=== PATIENT | male | born 1965 | race African-American/Black ===

== ENCOUNTER 2019-04-07 03:04 | Emergency (ER) | payer BC ==
[~2019-04-07] VITALS: Ht 172.7 cm; Wt 82.0 kg
[2019-04-07] MEDS ORDERED: KETOROLAC 30MG/ML VIAL IM STA (03:27)
[2019-04-07] MEDS ORDERED: MORPHINE SULFATE 10 MG/ML CPJ IM ONE (03:45)
[2019-04-07] MEDS ORDERED: ONDANSETRON 4MG ODT PO ONE (03:45)
[2019-04-07 03:46] LABS: BASOPHILS % 0.3 % (0.0-2.0); EOSINOPHILS % 0.1 % (0.0-5.0); HEMATOCRIT. 43.4 % (42.0-52.0); HEMOGLOBIN. 15.2 g/dL (14.0-18.0); LYMPHOCYTES % 24.1 % (20.0-50.0); MEAN CORPUSCULAR HEMOGLOBIN 29.8 pg (28.0-32.0); MEAN PLATELET VOLUME 7.8 fl (7.4-10.4); MONOCYTES % 8.2 % (2.0-8.0); NEUTROPHILS % 67.3 % (40.0-76.0); PLATELET 236 x1000/uL (130-400)
[2019-04-07 03:50] LABS: CHLORIDE 106 mEq/L (98-107)
[2019-04-07 06:12] LABS: CLARITY URINE CLOUDY (CLEAR); KETONES URINE NEGATIVE (NEGATIVE); LEUKOCYTE ESTERASE URINE TRACE (NEGATIVE); NITRITE URINE NEGATIVE (NEGATIVE); OCCULT BLOOD URINE 3+ (NEGATIVE); PROTEIN URINE 2+ (NEGATIVE); SPECIFIC GRAVITY URINE 1.012 (1.005-1.030); UROBILINOGEN URINE 0.2 E.U./dL (0.2-1.0)
[2019-04-07 06:13] LABS: COLOR URINE BLOODY (YELLOW)
[2019-04-07 06:40] VITALS: BP 123/61
== END 2019-04-07 07:19 | disposition home or self-care (01) ==
LOC: ER 03:04
DX: R33.9 Retention of urine, unspecified (principal); N40.0 Benign prostatic hyperplasia without lower urinary tract symptoms
CPT/HCPCS: 36415; 51702; 76770; 80053; 81003; 85025; 96372; 99284; J1885; J2270; Q0162; Z7610; A4315